=== PATIENT | female | born 1950 | race Caucasian/White ===

== ENCOUNTER 2016-07-31 00:29 | Emergency (ER) | payer MEDICARE ==
--- NOTE | ~2016-07-31 | CR63 ---
[facility] A Service of [facility] & [facility] RADIOLOGY TEXT RESULTS PATIENT: AURA ULLOA LOCATION: [facility] : 54 UNIT #: [id number] AGE: [address]: Yaz Patel MD SEX: F ORDER DR: [id number] [facility] [address] [place], [place] [address] [id number] E MR#: [id number] Acc #: [id number] NAME: AURA ULLOA : 1950 SEX: F STUDY DATE/TIME: 07/31/2016 2:32 UNIT: [facility] ROOM: STUDY DESCRIPTION: CR Chest 2 View Attending Physician: Yaz Patel M.D. Ordering Physician: Yaz Patel M.D. Primary Care Physician: No Primary Care Physician MEDICAL IMAGING REPORT This report is preliminary unless electronic signature is present EXAM 2-view chest INDICATIONS Shortness of air and cough. FINDINGS PA and lateral views of the chest compared to 06/15/2016. Heart and mediastinal contours within normal limits. No new pulmonary opacities. No pleural effusion. IMPRESSION No acute findings. Dictated by... Wolf No M.D. THIS IS AN ELECTRONICALLY VERIFIED REPORT Wolf No M.D. at 08/01/2016 12:03 AM JERMAN/butch TD: 07/31/2016 04:06 JOB #: [id number] MEDICAL IMAGING REPORT Page 1 of 1 COPY
== END 2016-07-31 04:10 | disposition home or self-care (01) ==
LOC: CED 00:29
DX: J30.2 Other seasonal allergic rhinitis (principal)
CPT/HCPCS: 71020; 99283

== ENCOUNTER → 2016-12-02 | Outpatient (CLI) | payer MEDICARE ==
--- NOTE | ~2016-12-02 | CR243 ---
[facility] A Service of [facility] & [facility] RADIOLOGY TEXT RESULTS PATIENT: AURA ULLOA LOCATION: [facility] : 54 UNIT #: [id number] AGE: [address]: BENSON GALEANO MD SEX: F ORDER DR: [id number] [facility] [address] [place], [place] [address] [id number] O MR#: [id number] Acc #: [id number] NAME: AURA ULLOA : 1950 SEX: F STUDY DATE/TIME: 12/02/2016 12:26 UNIT: [facility] ROOM: STUDY DESCRIPTION: CR Thoracic Spine 3 Views Attending Physician: Benson Galeano M.D. Referring Physician: Benson Galeano M.D. Ordering Physician: Benson Galeano M.D. Primary Care Physician: Benson Galeano M.D. MEDICAL IMAGING REPORT This report is preliminary unless electronic signature is present EXAM Thoracic spine series 3 views 12/02/2016 COMPARISON None. CLINICAL HISTORY A 2-week history of upper and mid back pain. There is osteopenia and mild degenerative change. There is even slight lower thoracic levoscoliosis, but there is no fracture or acute abnormality. Dictated by... Hussain Aldana M.D. THIS IS AN ELECTRONICALLY VERIFIED REPORT Hussain Aldana M.D. at 12/07/2016 10:50 AM NAEEM/kassy TD: 12/03/2016 06:38 JOB #: [id number] MEDICAL IMAGING REPORT Page 1 of 1 COPY
--- NOTE | ~2016-12-02 | CR184 ---
[facility] A Service of [facility] RADIOLOGY TEXT RESULTS PATIENT: AURA ULLOA LOCATION: [facility] : 54 UNIT #: [id number] AGE: [address]: BENSON GALEANO MD SEX: F ORDER DR: [id number] [place] [id number] [place], [place] [address] [id number] O MR#: [id number] Acc #: [id number] NAME: AURA ULLOA : 1950 SEX: F STUDY DATE/TIME: 12/02/2016 12:22 UNIT: [facility] ROOM: STUDY DESCRIPTION: CR Lumbar Spine Min 4 Views Attending Physician: Benson Galeano M.D. Referring Physician: Benson Galeano M.D. Ordering Physician: Benson Galeano M.D. Primary Care Physician: Benson Galeano M.D. MEDICAL IMAGING REPORT This report is preliminary unless electronic signature is present EXAM Lumbar spine series HISTORY Low back pain for the past 2 weeks. TECHNIQUE Five views lumbar spine were obtained including oblique views. FINDINGS Alignment is satisfactory. Minimal degenerative changes are seen in the lumbar discs except for L2-3 where there is moderate degenerative disc disease with disc space narrowing and small osteophytes. Oblique views show posterior facet degenerative change at L5-S1 bilaterally greater on the right than on the left. No fractures or destructive bone lesions are seen. IMPRESSION Moderate degenerative disc disease L2-3 with minimal degenerative changes at other lumbar discs. Mild facet arthropathy bilaterally at L5-S1 right worse than left. No acute bony abnormalities are seen. Dictated by... Luke Rader M.D. THIS IS AN ELECTRONICALLY VERIFIED REPORT Luke Rader M.D. at 12/06/2016 6:05 AM LUDY/kassy TD: 12/02/2016 23:57 JOB #: [id number] [facility] A Service of [facility] RADIOLOGY TEXT RESULTS PATIENT: AURA ULLOA LOCATION: [facility] #: [id number] : 54 UNIT #: [id number] AGE: [address]: BENSON GALEANO MD SEX: F ORDER DR: MEDICAL IMAGING REPORT Page 1 of 1 COPY
== END | disposition home or self-care (01) ==
LOC: CRAD 12:02
DX: M54.5 Low back pain (principal); M51.36 Other intervertebral disc degeneration, lumbar region; M46.97 Unspecified inflammatory spondylopathy, lumbosacral region
CPT/HCPCS: 72072; 72110